=== PATIENT | male | born 1990 | race Caucasian/White ===

== ENCOUNTER 2016-04-06 01:31 | Emergency (ER) | payer OTHER ==
[~2016-04-06] VITALS: Ht 177.8 cm; Wt 90.7 kg
[2016-04-06 01:37] VITALS: BP 124/66
--- NOTE | 2016-04-06 02:21 | NUR ---
PT TAKEN TO BED 5
--- NOTE | 2016-04-06 02:23 | NUR ---
PT IS A 25Y/M C/O LT EARACHE X3DAYS. DENIES FEVER. NO MED HX.
--- NOTE | 2016-04-06 03:25 | NUR ---
Dr. Robison evaluating patient at bedside.
[2016-04-06] MEDS ORDERED: KETOROLAC 60 MG/2 ML VIAL IM ONE (03:30)
[2016-04-06 03:48] VITALS: BP 121/63
--- NOTE | 2016-04-06 03:49 | NUR ---
Patient discharged with v/s stable. Written and verbal after care instructions given and explained. Patient alert, oriented and verbalized understanding of instructions. Ambulatory with steady gait. All questions addressed prior to discharge. ID band removed. Patient advised to follow up with PMD. Rx of MOTRIN 800MG PO given. Patient educated on indication of medication including possible reaction and side effects. Opportunity to ask questions provided and answered.
== END 2016-04-06 03:49 | disposition home or self-care (01) ==
LOC: MED 01:31
DX: H92.02 Otalgia, left ear (principal); Z88.0 Allergy status to penicillin
CPT/HCPCS: 96372; 99283; J1885

== ENCOUNTER 2016-09-07 11:26 | Emergency (ER) | payer OTHER ==
[~2016-09-07] VITALS: Ht 176.5 cm; Wt 93.4 kg
[2016-09-07 11:32] VITALS: BP 132/71
--- NOTE | 2016-09-07 11:47 | NUR ---
Pt taken to bed 5.
--- NOTE | 2016-09-07 12:04 | NUR ---
26/M c/o right eye pain since yesterday. Denies any injury or trauma. Eyes appears clear, sclera white. No drainage noted. Denies changes in vision. Conjunctiva pink. AOX4, ambulatory steady gait. VSS.
--- NOTE | 2016-09-07 12:17 | NUR ---
Patient being evaluated by Dr. Robison at bedside.
[2016-09-07 12:30] VITALS: BP 132/71
--- NOTE | 2016-09-07 12:30 | NUR ---
Patient discharged with v/s stable. Written and verbal after care instructions given and explained. Patient verbalized understanding. Ambulatory with steady gait. All questions addressed prior to discharge. Advised to follow up with PMD.
== END 2016-09-07 12:30 | disposition home or self-care (01) ==
LOC: MED 11:26
DX: H00.015 Hordeolum externum left lower eyelid (principal); Z88.0 Allergy status to penicillin
CPT/HCPCS: 99281

== ENCOUNTER 2021-03-03 19:41 | Emergency (ER) | payer SELFPAY ==
[~2021-03-03] VITALS: Ht 177.8 cm; Wt 110.2 kg
[2021-03-03 19:45] VITALS: BP 133/79
--- NOTE | 2021-03-03 19:57 | NUR ---
to lobby to a/w evaluation
--- NOTE | 2021-03-03 20:18 | NUR ---
pt examined by Dr. Light
[2021-03-03 20:35] LABS: APPEARANCE,URINE CLEAR (CLEAR); BILIRUBIN,URINE NEGATIVE (NEGATIVE); BLOOD, URINE TRACE (NEGATIVE); COLOR,URINE YELLOW (YELLOW); LEUKOCYTE ESTERASE ,URINE NEGATIVE (NEGATIVE); NITRITE, URINE NEGATIVE (NEGATIVE); PH,URINE 5.5 (5.0-9.0); UGLUCOSE NEGATIVE (NEGATIVE)
[2021-03-03 20:48] LABS: WBC,URINE NONE SEEN /HPF (0-5)
== END 2021-03-03 21:18 | disposition home or self-care (01) ==
LOC: MED 19:41
DX: R31.9 Hematuria, unspecified (principal); M54.9 Dorsalgia, unspecified; R10.9 Unspecified abdominal pain; Z88.0 Allergy status to penicillin
CPT/HCPCS: 81001; 99283